=== PATIENT | female | born 1975 | race Caucasian/White ===

== ENCOUNTER → 2017-12-05 08:23 | Outpatient (CLI) | payer OTHER, SELFPAY ==
--- NOTE | 2017-12-05 16:18 | XR_ITS ---
XR foot RT min 3V HISTORY: Right foot pain ITS.REASON: BILATERAL FOOT PAIN ORDERING PHYSICIAN: TITUS Lopez Physician PATIENT AGE: 42 years COMPARISON: None FINDINGS: There is mild hallux valgus with first metatarsophalangeal angle of 20 degrees with minimal hypertrophic change at the distal aspect of the first metatarsal. No other significant anomalies are evident. IMPRESSION: Hallux valgus with bunion formation
--- NOTE | 2017-12-05 16:19 | XR_ITS ---
XR foot LT min 3V HISTORY: Left foot pain ITS.REASON: BILATERAL FOOT PAIN ORDERING PHYSICIAN: TITUS Rosales PATIENT AGE: 42 years COMPARISON: None FINDINGS: Weightbearing views are performed. There is mild hallux valgus with first MTP angle of 17 degrees. There is some cortical thickening with mild deformity of the distal aspect of the first metatarsal suggesting an old fracture. A small cerclage wires present at the medial aspect of the proximal phalanx of the great toe. Otherwise negative. IMPRESSION: 1. Mild hallux valgus. 2. Postsurgical change with old fracture versus prior surgery of the distal first metatarsal
== END ==
PROVIDERS: Visit Provider Podiatrist
DX: M79.672 Pain in left foot (principal); M79.671 Pain in right foot
CPT/HCPCS: 73630

== ENCOUNTER → 2018-09-27 20:03 | Outpatient (CLI) | payer BC, SELFPAY | PROVIDERS: Visit Provider Nurse Practitioner Family | DX: J02.9 Acute pharyngitis, unspecified (principal) ==

== ENCOUNTER → 2019-04-16 13:40 | Outpatient (POV) | payer BC, SELFPAY | PROVIDERS: Visit Provider Dermatology | DX: Z00.00 Encounter for general adult medical examination without abnormal findings (principal) ==

== ENCOUNTER → 2019-12-04 08:29 | Outpatient (CLI) | payer BC, SELFPAY ==
--- NOTE | 2019-12-04 08:35 | MR_ITS ---
PROCEDURE: MR LUMBAR SPINE WO CON CLINICAL INDICATION: LOW BACK PAIN, LUMBAR RADICULOPATHY, FOOT NUMBNESS Low back pain, buttock and leg pain, right lower leg pain and numbness COMPARISON: No exams were available for comparison TECHNIQUE: Standard multiplanar multiecho sequences are performed without contrast. 3-D MIP and myelographic images are also rendered and reviewed FINDINGS: There is normal alignment. The spinal cord ends at the L1 level. L1-L2 L2-L3 and L3-L4 have an unremarkable appearance. There is mild facet ligamentum hypertrophy at L4-5 with minimal bulging of the disc slightly eccentric to the left. There is a small annular fissure along the foraminal and lateral aspect of the disc. There is minimal bilateral foraminal narrowing L5-S1: Unremarkable. No extruded herniated disc or canal stenosis is evident. Incidental note is made at 1.3 cm cyst in the right lobe of the liver posteriorly IMPRESSION: 1. There is mild facet ligamentum hypertrophy at L4-5 with minimal bulging of the disc slightly eccentric to the left. There is a small annular fissure along the foraminal and lateral aspect of the disc. There is minimal bilateral foraminal narrowing 2. No disc herniation or canal stenosis Dictated by: Garrett Crisostomo MD 12/05/2019 10:57 Electronically signed by Garrett Crisostomo MD in [place] 12/05/2019 10:57
== END ==
PROVIDERS: PCP Family Medicine; Visit Provider Family Medicine
DX: M54.5 Low back pain (principal); M54.16 Radiculopathy, lumbar region; R20.0 Anesthesia of skin
CPT/HCPCS: 72148; 76376

== ENCOUNTER → 2019-12-18 08:52 | Outpatient (CLI) | payer BC, SELFPAY ==
--- NOTE | 2019-12-18 09:02 | CT_ITS ---
PROCEDURE: CT ABDOMEN WO/W CON CLINICAL HISTORY: LIVER MASS COMPARISON: No exams were available for comparison TECHNIQUE: Postcontrast images were performed with 75 cc Optiray administration. Axial images obtained with sagittal and coronal reformats. All CT scans at the facility use one or more dose reduction, viz: automated exposure control, ma/kV adjustment per patient size (including targeted exams where dose is matched to indication, i.e. head), or iterative reconstruction technique. FINDINGS: There are at least 7 varying sized hypodense liver lesions. Largest is approximately 11 x 12 millimeter hypodense lesion is seen in the right liver dome. This measures 6 Hounsfield units on the noncontrast exam which would be most consistent with benign cyst. A 2nd lesion 9 x 14 millimeters is seen in the right liver measuring 22 Hounsfield units not fulfilling strict criteria for benign cyst. Other lesions are too small to definitively characterize. 5 minute delayed images fail to demonstrate significant contrast enhancement. Subcentimeter cystic lesion of the posterior cortex of the upper pole of the left kidney is noted. Remaining intra-abdominal organs have a normal appearance. There is no free fluid lymphadenopathy or focal inflammatory process. IMPRESSION: Multiple hypodense predominantly fluid density lesions of the liver favored to be benign cysts but only the largest fulfills strict criteria for benign cyst. Consider 3 to six-month follow-up exam. No acute findings. Dictated by: Ciaran Melo 12/18/2019 11:38 Electronically signed by Ciaran Melo in [facility] 12/18/2019 11:38
== END ==
PROVIDERS: PCP Family Medicine; Visit Provider Family Medicine
DX: R16.0 Hepatomegaly, not elsewhere classified (principal)
CPT/HCPCS: 74170; Q9967

== ENCOUNTER → 2020-04-10 10:21 | Outpatient (CLI) | payer BC, SELFPAY ==
--- NOTE | 2020-04-10 10:25 | CT_ITS ---
PROCEDURE: CT ABDOMEN PELVIS WO/W CON CLINICAL INDICATION: 3 MONTH F/U LIVER MASS Follow-up liver lesion COMPARISON: CT ABDOMEN WO/W CON from 12/18/2019 TECHNIQUE: IV Contrast: 75ML OPTIRAY 350 Oral Contrast 450ml Redicat Axial images obtained with sagittal and coronal reformats. All CT scans at the facility use one or more dose reduction, viz: automated exposure control, ma/kV adjustment per patient size (including targeted exams where dose is matched to indication, i.e. head), or iterative reconstruction technique. FINDINGS: LOWER THORAX: No acute finding the ABDOMEN & PELVIS: Fatty liver. Prior cholecystectomy. Multiple hypoattenuating liver lesions are once again noted as previously described not significantly changed. No new lesions evident. Small hiatal hernia. The spleen, adrenal pancreas and kidneys have unremarkable appearance. There is a less than 1 cm hypodensity of the left kidney is a small cyst IMPRESSION: Stable CT appearance of the abdomen. No change multiple hyperdensity of the liver which may be due to hepatic cysts. Suggest 8 month follow-up to confirm 1 year stability Dictated by: Garrett Crisostomo MD 04/11/2020 10:50 Electronically signed by Garrett Crisostomo MD in [facility] 04/11/2020 10:52
== END ==
PROVIDERS: PCP Family Medicine; Visit Provider Family Medicine
DX: R16.0 Hepatomegaly, not elsewhere classified (principal)
CPT/HCPCS: 74170; 74178; Q9967

== ENCOUNTER → 2020-10-19 15:32 | Outpatient (CLI) | payer BC, SELFPAY | PROVIDERS: PCP Family Medicine; Visit Provider Family Medicine | DX: Z03.818 Encounter for observation for suspected exposure to other biological agents ruled out (principal) | CPT/HCPCS: U0003 ==

== ENCOUNTER → 2021-03-25 10:24 | Outpatient (CLI) | payer BC, SELFPAY ==
[2021-03-25 10:48] LABS: Basophils % 0.7 % (0.1-2.0); Eosinophils # 0.1 K/mm3 (0.0-0.4); Eosinophils % 1.7 % (0.1-12.0); Hemoglobin 13.4 g/dL (12.2-16.2); Lymphocytes # 1.2 K/mm3 (0.7-4.5); Lymphocytes % 27.5 % (10-50); Mean Corpuscular HGB Conc 34.3 g/dL (31.8-35.4); Mean Corpuscular Volume 87.4 fl (81-99); Mean Platelet Volume 8.9 fl (7.4-10.4); Monocytes # 0.2 K/mm3 (0.1-1.0); Monocytes % 4.1 % (1.7-9.3); Neutrophils # 2.9 K/mm3 (1.8-7.8); Neutrophils % 66.1 % (37.0-80.0); Platelet Count 175 K/mm3 (142-424); Red Blood Count 4.46 M/mm3 (4.20-5.40); White Blood Count 4.4 K/mm3 (4.8-10.8)
[2021-03-25 11:15] LABS: Erythrocyte Sedimentation Rate 16 mm/hr (0-20)
[2021-03-25 11:17] LABS: Alanine Aminotransferase 27 U/L (12-78); Albumin Level 4.5 g/dl (3.5-5.0); Albumin/Globulin Ratio 1.8 (1.1-1.8); Alkaline Phosphatase 39 U/L (38-126); Aspartate Amino Transferase 27 U/L (14-36); Bilirubin,Total 0.7 mg/dl (0.2-1.3); Blood Urea Nitrogen 15 mg/dl (7-17); Calcium 9.3 mg/dl (8.4-10.2); Carbon Dioxide 25 mmol/L (22.0-30.0); Chloride 106 mmol/L (98-107); Estimated Glomerular Filt Rate 78 ml/min (>60); GFR (African American) 95 ML/MIN (>60); Globulin 2.5 g/dL (1.3-3.2); Glucose 103 mg/dl (74-100); Sodium 137 mmol/L (136-145)
[2021-03-25 11:23] LABS: C-Reactive Protein 2.5 mg/L (0-4)
[2021-03-28 15:38] LABS: QuantiFERON-TB Gold Plus Negative (Negative)
== END ==
PROVIDERS: Visit Provider Internal Medicine Rheumatology
DX: K50.90 Crohn's disease, unspecified, without complications (principal); K13.79 Other lesions of oral mucosa; M25.551 Pain in right hip; M35.2 Behcet's disease; M79.2 Neuralgia and neuritis, unspecified
CPT/HCPCS: 36415; 80053; 85025; 85651; 86140; 86480

== ENCOUNTER → 2021-05-17 14:39 | Outpatient (CLI) | payer BC, SELFPAY | PROVIDERS: PCP Family Medicine; Visit Provider Family Medicine | DX: G47.30 Sleep apnea, unspecified (principal); G47.10 Hypersomnia, unspecified; R06.83 Snoring | CPT/HCPCS: G0399 ==

== ENCOUNTER → 2021-09-11 09:24 | Outpatient (CLI) | payer BC, SELFPAY ==
[2021-09-11 10:24] LABS: Basophils % 0.9 % (0.1-2.0); Eosinophils # 0.1 K/mm3 (0.0-0.4); Eosinophils % 1.5 % (0.1-12.0); Hematocrit 40.3 % (37.0-47.0); Hemoglobin 13.6 g/dL (12.2-16.2); Lymphocytes # 1.4 K/mm3 (0.7-4.5); Lymphocytes % 33.3 % (10-50); Mean Corpuscular HGB Conc 33.7 g/dL (31.8-35.4); Mean Corpuscular Hemoglobin 30.7 pg (27.0-31.2); Mean Corpuscular Volume 91.1 fl (81-99); Monocytes # 0.2 K/mm3 (0.1-1.0); Monocytes % 3.8 % (1.7-9.3); Neutrophils # 2.6 K/mm3 (1.8-7.8); Neutrophils % 60.6 % (37.0-80.0); Platelet Count 232 K/mm3 (142-424); Red Blood Count 4.42 M/mm3 (4.20-5.40); Red Cell Distribution Width 13.4 % (11.5-17.5); White Blood Count 4.3 K/mm3 (4.8-10.8)
[2021-09-11 11:07] LABS: Chloride 104 mmol/L (98-107)
[2021-09-11 11:08] LABS: Potassium 4.6 mmoL/L (3.5-5.1); Sodium 139 mmol/L (136-145)
[2021-09-11 11:10] LABS: Blood Urea Nitrogen 14 mg/dl (7-17); Estimated Glomerular Filt Rate 109 ml/min (>60); GFR (African American) 132 ML/MIN (>60)
[2021-09-11 11:11] LABS: Alanine Aminotransferase 24 U/L (12-78); Albumin Level 4.6 g/dl (3.5-5.0); Albumin/Globulin Ratio 1.6 (1.1-1.8); Alkaline Phosphatase 46 U/L (38-126); Anion Gap 11.6 mEq/L (5-15); Aspartate Amino Transferase 35 U/L (14-36); Bilirubin,Total 0.6 mg/dl (0.2-1.3); Calcium 9.5 mg/dl (8.4-10.2); Carbon Dioxide 28 mmol/L (22.0-30.0); Chol/HDL Ratio 2.6 (1-3.5); Cholesterol 240 mg/dl (140-200); Globulin 2.8 g/dL (1.3-3.2); Glucose 92 mg/dl (74-100); HDL Cholesterol 92 mg/dl (40-60); Total Protein,Serum 7.4 g/dl (6.3-8.2); Triglycerides 127 mg/dl (30-150); VLDL Cholesterol 25 mg/dL (0-40)
[2021-09-11 11:17] LABS: C-Reactive Protein 2.8 mg/L (0-4)
[2021-09-11 11:22] LABS: Direct LDL Cholesterol 132.98 mg/dL (100-129)
[2021-10-21 18:10] LABS: QuantiFERON-TB Gold Plus NEGATIVE
== END ==
PROVIDERS: Family Medicine; Visit Provider Internal Medicine Rheumatology
DX: K50.90 Crohn's disease, unspecified, without complications (principal); M35.2 Behcet's disease; M25.551 Pain in right hip; M79.2 Neuralgia and neuritis, unspecified; E78.00 Pure hypercholesterolemia, unspecified; R53.83 Other fatigue
CPT/HCPCS: 36415; 80053; 80061; 85025; 86140; 86480

== ENCOUNTER → 2021-09-22 08:40 | Outpatient (CLI) | payer BC, SELFPAY ==
--- NOTE | 2021-09-22 08:58 | CT_ITS ---
PROCEDURE INFORMATION: Exam: CT Abdomen With Contrast Exam date and time: 09/22/2021 8:58 AM Age: 45 years old Clinical indication: Condition or disease; Liver condition; Hepatomegaly or mass; Patient HX: Follow up liver mass. Used 75 ml of isovue 370. 30 sec, 60 sec, 5 min delays TECHNIQUE: Imaging protocol: Computed tomography images of the abdomen with intravenous contrast. Radiation optimization: All CT scans at this facility use at least one of these dose optimization techniques: automated exposure control; mA and/or kV adjustment per patient size (includes targeted exams where dose is matched to clinical indication); or iterative reconstruction. Contrast material: ISOVUE; Contrast volume: 75 ml; Contrast route: IV; COMPARISON: CT ABDOMEN WO/W CON 04/10/2020 11:12 AM FINDINGS: Liver: 12 mm low-attenuation area in the dome of the liver measures 1 Hounsfield units consistent with simple cyst on noncontrast images. Series 3, image 17. 14 mm simple cyst in the posteroinferior right lobe of the liver. Series 3, image 39. Subcentimeter low attenuation area in the inferior right lobe of the liver and the left lobe of the liver are too small for characterization.. Gallbladder and bile ducts: Cholecystectomy Pancreas: Normal. No ductal dilation. Spleen: Normal. No splenomegaly. Adrenals: Normal. No mass. Kidneys and ureters: 9 mm Simple cyst in the left kidney . No follow-up imaging recommended . Stomach and bowel: Visualized stomach and bowel are unremarkable. No obstruction. No mucosal thickening. Intraperitoneal space: Unremarkable. No free air. No significant fluid collection. Lymph nodes: Unremarkable. No enlarged lymph nodes. Vasculature: Unremarkable. No abdominal aortic aneurysm. Bones/joints: Unremarkable. No acute fracture. No dislocation. Soft tissues: Unremarkable. IMPRESSION: 1. 12 mm low-attenuation area in the dome of the liver measures 1 Hounsfield units consistent with simple cyst on noncontrast images. Series 3, image 17. . No follow-up imaging recommended . 2. 14 mm simple cyst in the posteroinferior right lobe of the liver. Series 3, image 39. . No follow-up imaging recommended . 3. Subcentimeter low attenuation area in the inferior right lobe of the liver and the left lobe of the liver are too small for characterization.. COMMENTS: Consistent with the [employer]'s Incidental Findings Committee white paper (J Am Yusuf Radiol 2018): Any incidental renal lesion less than 1 cm or classified as too small to characterize, or any incidental cystic renal lesion characterized as simple-appearing, is likely benign. No follow-up imaging is recommended for these lesions per consensus recommendations based on imaging criteria.
== END ==
PROVIDERS: PCP Family Medicine; Visit Provider Family Medicine
DX: R16.0 Hepatomegaly, not elsewhere classified (principal)
CPT/HCPCS: 74160; Q9967

== ENCOUNTER → 2022-01-24 14:10 | Outpatient (CLI) | payer BC, SELFPAY ==
--- NOTE | 2022-01-24 14:14 | CT_ITS ---
FINAL REPORT CLINICAL HISTORY: LLQ PAIN COMPARISON: September 22 1021 FINDINGS: Axial CT images of the abdomen and pelvis were obtained without intravenous contrast. Coronal reformatted images were also obtained.This study was performed with techniques to keep radiation doses as low as reasonably achievable (ALARA). Individualized dose reduction techniques using automated exposure control or adjustment of mA and/or kV according to the patient's size were employed. Abdomen: The lung bases are clear. There is no evidence of renal stone or hydronephrosis. There are postoperative changes from a cholecystectomy. Again noted are multiple low-attenuation hepatic masses consistent with cysts. These are stable. The spleen and pancreas have an unremarkable, unenhanced appearance. No inflammatory process is identified. There is a small low-attenuation mass in the upper pole of the left kidney measuring 6 mm. This cannot be accurately characterized without contrast. Pelvis: The appendix is not seen consistent with history of appendectomy. There is no evidence of ureteral dilation or ureteral stone. There is scattered diverticula. There are postoperative changes in the rectosigmoid colon. There are postoperative changes from hysterectomy. IMPRESSION: No renal or ureteral stone, or hydronephrosis. No acute intra-abdominal abnormality. Reviewed, Interpreted and Dictated by Alan Pedraza III, MD Transcribed by Awa Benitez Authenticated by Alan Pedraza III, MD on 01/24/2022 02:59:32 PM [facility]
== END ==
PROVIDERS: PCP Family Medicine; Visit Provider Family Medicine
DX: R10.32 Left lower quadrant pain (principal)
CPT/HCPCS: 74176

== ENCOUNTER → 2022-04-04 16:34 | Outpatient (CLI) | payer BC, OTHER, SELFPAY ==
[2022-04-04 17:26] LABS: Basophils # 0.2 K/mm3 (0-0.2); Basophils % 3.6 % (0.1-2.0); Eosinophils # 0.1 K/mm3 (0.0-0.4); Eosinophils % 1.5 % (0.1-12.0); Hematocrit 38.2 % (37.0-47.0); Lymphocytes # 1.6 K/mm3 (0.7-4.5); Lymphocytes % 29.9 % (10-50); Mean Corpuscular HGB Conc 34.1 g/dL (31.8-35.4); Mean Corpuscular Volume 90.9 fl (81-99); Mean Platelet Volume 9.5 fl (7.4-10.4); Monocytes # 0.3 K/mm3 (0.1-1.0); Neutrophils # 3.2 K/mm3 (1.8-7.8); Platelet Count 189 K/mm3 (142-424); Red Blood Count 4.21 M/mm3 (4.20-5.40); Red Cell Distribution Width 13.1 % (11.5-17.5); White Blood Count 5.3 K/mm3 (4.8-10.8)
[2022-04-04 17:41] LABS: Alanine Aminotransferase 25 U/L (12-78); Albumin Level 4.1 g/dl (3.5-5.0); Albumin/Globulin Ratio 1.6 (1.1-1.8); Alkaline Phosphatase 42 U/L (38-126); Anion Gap 11.5 mEq/L (5-15); Aspartate Amino Transferase 28 U/L (14-36); Bilirubin,Total 0.2 mg/dl (0.2-1.3); Blood Urea Nitrogen 19 mg/dl (7-17); Carbon Dioxide 27 mmol/L (22.0-30.0); Chloride 104 mmol/L (98-107); Creatine Kinase 87 U/L (30-135); Estimated Glomerular Filt Rate 91 ml/min (>60); GFR (African American) 110 ML/MIN (>60); Globulin 2.6 g/dL (1.3-3.2); Glucose 107 mg/dl (74-100); Potassium 3.5 mmoL/L (3.5-5.1); Sodium 139 mmol/L (136-145); Total Protein,Serum 6.7 g/dl (6.3-8.2)
[2022-04-04 17:47] LABS: C-Reactive Protein 1.9 mg/L (0-4)
[2022-04-04 17:53] LABS: Intact Parathyroid Hormone 77.6 pg/mL (7.5-53.5)
[2022-04-04 17:59] LABS: Free T4 (Free Thyroxine) 1.11 ng/dl (0.78-2.19)
[2022-04-04 18:05] LABS: Erythrocyte Sedimentation Rate 17 mm/hr (0-20)
[2022-04-04 18:31] LABS: Vitamin B12 481 pg/mL (239-931)
== END ==
PROVIDERS: PCP Family Medicine; Visit Provider Internal Medicine Rheumatology
DX: K50.90 Crohn's disease, unspecified, without complications (principal); M25.551 Pain in right hip; M35.2 Behcet's disease; M79.2 Neuralgia and neuritis, unspecified; R53.83 Other fatigue
CPT/HCPCS: 36415; 80053; 82550; 82607; 82746; 83970; 84439; 84443; 85025; 85651; 86140

== ENCOUNTER 2022-04-28 12:52 | Emergency (ER) | payer BC, OTHER, SELFPAY ==
[2022-04-28 13:00] VITALS: BP 148/79; PULSE 75; RESP 18; TEMP 36.9; O2SAT 98; BMI 31.2
--- NOTE | 2022-04-28 13:38 | HMH.EDUTC ---
[facility] [place] Clinical Impression: Sinusitis Qualifiers: Sinusitis location: unspecified location Chronicity: unspecified Qualified Code(s): J32.9 - Chronic sinusitis, unspecified Disposition: Home, Self-Care Condition on Discharge: Good Instructions: Sinusitis, DI for Sinusitis Additional Instructions: *Monitor Temp, Over the counter Motrin or Tylenol as directed/as needed Tylenol every 4 hours and Motrin every 6 hours (as long as your family doctor has told you that you can take it) for fever or pain. and straight to ER if unable to lower temp less than 101.0 after medication given *Warm salt water gargles may help to soothe the throat *Throat Lozenges *Warm fluids like tea with honey may help to soothe the throat *Sleep elevated *Humidifier/Vaporizer Start oral steriods tomorrow Start oral antibiotics tomorrow Follow up IMMEDIATELY for new or worsening symptoms or no Noticeable improvement over the next 48-72 hours. 911 for difficulty breathing or swallowing Prescriptions: Doxycycline Monohydrate [Doxycycline Rogers 100mg Tab] 100 mg PO BID #14 tab Transmission Status: Received by [facility] #[id number] methylPREDNISolone [Medrol 4mg tab] 4 mg PO DIRECTED #21 tab Transmission Status: Received by [facility] #[id number] Referrals: Radha Gupat [Primary Care Provider] - As needed Time of Disposition: 13:45 Medical Decision Making - Herminio Inquiry Pt receiving controlled substance: No Herminio was queried for this patient: No Vital Signs: 04/28/22 13:00 04/28/22 13:55 Temperature 98.4 F 98.4 F Temperature Source Oral Pulse Rate 75 Pulse Rate [Right Brachial] 75 Respiratory Rate 18 18 Blood Pressure 148/79 H Blood Pressure [Right Arm] 148/79 H Blood Pressure Mean [Right Arm] 102 Blood Pressure Source [Right Arm] Automatic Cuff Blood Pressure Position [Right Arm] Sitting 02 Sat by Pulse Oximetry 98 Oxygen Delivery Method Room Air Orders (Tests/Meds): ED MEDICATIONS Discontinued Medications Generic Name Dose Route Start Last Admin Trade Name Freq PRN Reason Stop Dose Admin Ceftriaxone Sodium 1 gm 04/28/22 13:43 04/28/22 13:52 Ceftriaxone 1gm Vial IM 04/28/22 13:44 1 gm ONCE ONE Administration Lidocaine HCl 0 ml 04/28/22 13:43 04/28/22 13:52 Lidocaine 1% 5ml Pf Vial IM 04/28/22 13:44 2 ml ONCE ONE Administration Methylprednisolone Sodium Succinate 125 mg 04/28/22 13:43 04/28/22 13:52 Methylprednisolone Sod Succ 125mg Vial IM 04/28/22 13:44 125 mg ONCE ONE Administration Medical Decision Narrative: Patient states that she is allergic to Cefaclor she has taken Rocephin in the past without complications or reactions [facility] [place] - General Stated complaint: congestion, sore throat, cough Time Seen by Provider: 04/28/22 13:38 Mode of Arrival: Ambulatory Source of Information: Patient Limitations: No Limitations Description of Symptoms (Recalled from Triage Doc. by RN): PATIENT C/O COUGH, CONGESTION, AND SINUS PRESSURE X 2 DAYS HEENT Symptoms (Recalled from RN notes): Yes Resp Symptoms (Recalled from RN notes): Yes Skin Symptoms (Recalled from RN notes): No MS Symptoms (Recalled from RN notes): No Functional Status (Recalled from RN notes): WNL - History of Present Illness Provider Complaint: Patient states that she has been fighting off what she thought was allergies for several weeks but in the last 2 days she has been having worsening of sinus pain and pressure with pressure behind her eyes and drainage in the back of throat causing her to cough States that she feels like she may have a sinus infection Took at home COVID test and it was negative - Related Data Home Medications Medication Instructions Recorded Confirmed azathioprine 50 mg tablet 50 mg PO ONCE 12/05/17 09/29/21 cetirizine 10 mg capsule 10 mg PO ONCE 12/05/17 09/29/21 cholecalciferol (vitamin D3) 125 5,000 unit PO ONCE 12/05/17 09/29/21 mcg (5,000
[2022-04-28 13:55] VITALS: BP 148/79; PULSE 75; RESP 18; TEMP 36.9; O2SAT 98
== END 2022-04-28 14:05 | disposition home or self-care (01) ==
PROVIDERS: Emergency Provider Nurse Practitioner; PCP Family Medicine
DX: J32.9 Chronic sinusitis, unspecified (principal)
CPT/HCPCS: 96372; 99212; G0463; J0696

== ENCOUNTER → 2022-06-13 16:17 | Outpatient (CLI) | payer BC, SELFPAY ==
--- NOTE | 2022-06-13 | ECG_ITS ---
APPROVED REPORT Exam: Resting ECG HR:64 bpm ECG Measurements Heart Rate 64 AXES DE 148 P 53 QRSd 88 QRS 74 QT 381 T 9 QTc 391 Conclusion SINUS RHYTHM WITH SINUS ARRHYTHMIA NORMAL ECG UNCONFIRMED REPORT Electronically signed by : Rony Travis MD 06/14/2022 13:52:01
== END ==
PROVIDERS: PCP Family Medicine; Visit Provider Internal Medicine Cardiovascular Disease
DX: I49.3 Ventricular premature depolarization (principal)
CPT/HCPCS: 93005

== ENCOUNTER 2022-09-10 08:42 | Emergency (ER) | payer BC, SELFPAY ==
[2022-09-10 09:30] VITALS: BP 112/68; PULSE 81; RESP 21; TEMP 36.9; O2SAT 97; BMI 29.7
--- NOTE | 2022-09-10 09:43 | EXP.UTC ---
Discharge Plan Disposition Patient Disposition: Home, Self-Care Condition: Good Prescriptions Prescriptions: New methylprednisolone [Medrol (Elan)] 4 mg tablets,dose pack See Rx Instructions .Route .COMPLEX 6 Days Qty: 21 0RF Rx Instructions: taper pack; amoxicillin-pot clavulanate 875-125 mg Tablet 1 tab PO Q12H 7 Days Qty: 14 0RF benzonatate 100 mg capsule 100 mg PO TID PRN (Reason: cough) Qty: 30 0RF No Action [id number]-Ao-lwdb-minerals 18-0.4 mg tablet PO cholecalciferol (vitamin D3) 5,000 unit capsule 5,000 unit PO ONCE vitamin B complex tablet 1 tab PO ONCE omega-3 fatty acids-fish oil [One-Per-Day [place]-3] 684-1,200 mg capsule,delayed release(DR/EC) PO meloxicam [Mobic] 15 mg tablet 15 mg PO ONCE azathioprine [Imuran] 50 mg tablet 50 mg PO ONCE estradiol [Estrace] 1 mg tablet 1 mg PO ONCE pantoprazole [Protonix] [address] for susp in packet 40 mg PO QAM lactobacillus combination no.8 [Adult Probiotic] 3 billion cell capsule 3,000 mmu cells PO ONCE cetirizine [Zyrtec] 10 mg capsule 10 mg PO ONCE rizatriptan [Maxalt] 10 mg tablet 10 mg PO ONCE infliximab [Remicade] 100 mg recon soln 100 mg IV urea 45 % cream 1 applic TOPICAL BID Qty: 255 2RF Rx Instructions: Apply up to twice daily to affected dry skin and calluses fluticasone propionate 120 SPR/BOT bottle 1 spr NS DAILY 14 Days Qty: 1 0RF methylprednisolone 4 MG tablet 4 mg PO DIRECTED Qty: 21 0RF Rx Instructions: Take as directed on package instructions doxycycline monohydrate 100 MG tablet 100 mg PO BID Qty: 14 0RF Referrals Follow up/Referrals: Radha Gupta [Primary Care Provider] - See instructions Activity Restrictions/Add. Instructions Additional Instructions/Restrictions: Start oral steriods tomorrow *Monitor Temp, Over the counter Motrin or Tylenol as directed/as needed Tylenol every 4 hours and Motrin every 6 hours (as long as your family doctor has told you that you can take it) for fever or pain. and straight to ER if unable to lower temp less than 101.0 after medication given *Warm salt water gargles may help to soothe the throat *Throat Lozenges? *Warm fluids like tea with honey may help to soothe the throat? *Sleep elevated *Humidifier/Vaporizer Follow up IMMEDIATELY for new or worsening symptoms or no Noticeable improvement over the next 48-72 hours. 911 for difficulty breathing or swallowing Clinical Impressions Clinical Impression: Sinusitis Instructions Patient Instructions: Sinusitis, DI for Sinusitis Discharge ED Provider: Karin Benitez [facility] [place] HPI General Stated complaint: congestion, cough, SHINE Mode of Arrival: Ambulatory Source of Information: Patient Limitations: No Limitations Time Seen by Provider: 09/10/22 09:43 Description of Symptoms (Recalled from Triage Doc. by RN): PATIENT C/O COUGH, HEADACHE, SINUS PRESSURE, EAR PRESSURE, SORE THROAT, AND WHEEZING AT NIGHT THAT STARTED MONDAY HEENT Symptoms (Recalled from RN notes): Yes Resp Symptoms (Recalled from RN notes): Yes Skin Symptoms (Recalled from RN notes): No MS Symptoms (Recalled from RN notes): No Functional Status (Recalled from RN notes): WNL History of Present Illness Provider Complaint: Patient states that she has been having sore throat, sinus pain and pressure cough and having drainage in the back of her throat States that when she lays down she feels like it is trying to move into her chest and she can her it wheeze but if she sits up it goes away Related Data Home Medications Medication Instructions Recorded Confirmed azathioprine 50 mg tablet (Imuran) 50 mg PO ONCE 12/05/17 09/29/21 cetirizine 10 mg capsule (Zyrtec) 10 mg PO ONCE 12/05/17 09/29/21 cholecalciferol (vitamin D3) 125 5,000 unit PO ONCE 12/05/17 09/29/21 mcg (5,000 unit) capsule estradiol 1 mg
[2022-09-10 10:12] LABS: UTC Influenza A Antigen Negative (Negative); UTC Influenza B Antigen Negative (Negative)
[2022-09-10 10:23] VITALS: BP 112/68; PULSE 81; RESP 21; TEMP 36.9; O2SAT 97
== END 2022-09-10 10:24 | disposition home or self-care (01) ==
PROVIDERS: Emergency Provider Nurse Practitioner; PCP Family Medicine
DX: J32.9 Chronic sinusitis, unspecified (principal)
CPT/HCPCS: 87804; 96372; 99212; G0463

== ENCOUNTER 2022-09-17 08:00 | Emergency (ER) | payer BC, SELFPAY ==
[2022-09-17 08:21] VITALS: BP 130/86; PULSE 84; RESP 16; TEMP 36.7; O2SAT 96
--- NOTE | 2022-09-17 08:36 | EXP.UTC ---
Discharge Plan Disposition Patient Disposition: Home, Self-Care Condition: Good Prescriptions Prescriptions: New doxycycline monohydrate [doxycycline monohydrate] 100 mg tablet 100 mg PO Q12 10 Days Qty: 20 0RF benzonatate [benzonatate] 100 mg capsule 100 mg PO TIDP PRN (Reason: Cough) Qty: 30 0RF methylprednisolone 4 mg Tablets,Dose Pack 4 mg PO DIRECTED Qty: 21 0RF No Action yysiolpalefz-Id-wuqi-minerals 18-0.4 mg tablet PO cholecalciferol (vitamin D3) 5,000 unit capsule 5,000 unit PO ONCE vitamin B complex tablet 1 tab PO ONCE omega-3 fatty acids-fish oil [One-Per-Day [place]-3] 684-1,200 mg capsule,delayed release(DR/EC) PO meloxicam [Mobic] 15 mg tablet 15 mg PO ONCE azathioprine [Imuran] 50 mg tablet 50 mg PO ONCE estradiol [Estrace] 1 mg tablet 1 mg PO ONCE pantoprazole [Protonix] [address] for susp in packet 40 mg PO QAM lactobacillus combination no.8 [Adult Probiotic] 3 billion cell capsule 3,000 mmu cells PO ONCE cetirizine [Zyrtec] 10 mg capsule 10 mg PO ONCE rizatriptan [Maxalt] 10 mg tablet 10 mg PO ONCE infliximab [Remicade] 100 mg recon soln 100 mg IV urea 45 % cream 1 applic TOPICAL BID Qty: 255 2RF Rx Instructions: Apply up to twice daily to affected dry skin and calluses fluticasone propionate 120 SPR/BOT bottle 1 spr NS DAILY 14 Days Qty: 1 0RF methylprednisolone 4 MG tablet 4 mg PO DIRECTED Qty: 21 0RF Rx Instructions: Take as directed on package instructions doxycycline monohydrate 100 MG tablet 100 mg PO BID Qty: 14 0RF methylprednisolone [Medrol (Elan)] 4 mg tablets,dose pack See Rx Instructions .Route .COMPLEX 6 Days Qty: 21 0RF Rx Instructions: taper pack; amoxicillin-pot clavulanate 875-125 mg Tablet 1 tab PO Q12H 7 Days Qty: 14 0RF benzonatate 100 mg capsule 100 mg PO TID PRN (Reason: cough) Qty: 30 0RF Referrals Follow up/Referrals: Radha Gupta [Primary Care Provider] - See instructions Activity Restrictions/Add. Instructions Additional Instructions/Restrictions: Drink plenty of fluids. Take tylenol or ibuprofen for pain or fever. Take the medications as directed. Follow up with your regular doctor. GO TO THE ER FOR ANY WORSENING SYMPTOMS Clinical Impressions Clinical Impression: Acute bronchitis Instructions Patient Instructions: DI for Acute Bronchitis [place]charge ED Provider: Montez W[place] [facility] [facility] [place] General Stated complaint: head/chest congestion Mode of Arrival: Ambulatory Source of Information: Patient Limitations: No Limitations Time Seen by Provider: 09/17/22 08:34 Description of Symptoms (Recalled from Triage Doc. by RN): pt comes in with c/o cough, congestion. symptoms began 09/08. HEENT Symptoms (Recalled from RN notes): Yes Resp Symptoms (Recalled from RN notes): Yes Skin Symptoms (Recalled from RN notes): No MS Symptoms (Recalled from RN notes): No Functional Status (Recalled from RN notes): n/a History of Present Illness Provider Complaint: She states that for the past 10 days she has had chest and sinus congestion. She has completed the steroids and antibiotics that were prescribed here originally and she is no better. Related Data Home Medications Medication Instructions Recorded Confirmed azathioprine 50 mg tablet (Imuran) 50 mg PO ONCE 12/05/17 09/29/21 cetirizine 10 mg capsule (Zyrtec) 10 mg PO ONCE 12/05/17 09/29/21 cholecalciferol (vitamin D3) 125 5,000 unit PO ONCE 12/05/17 09/29/21 mcg (5,000 unit) capsule estradiol 1 mg tablet (Estrace) 1 mg PO ONCE 12/05/17 09/29/21 infliximab 100 mg intravenous 100 mg IV 12/05/17 09/29/21 solution (Remicade) lactobacillus combination no.8 3 3,000 mmu cells PO ONCE 12/05/17 09/29/21 billion cell capsule (Adult Probiotic) meloxicam 15 mg tablet (Mobic) 15 mg PO ONCE 12/05/17 09/29/21 [id number]
--- NOTE | 2022-09-17 08:47 | XR_ITS ---
PROCEDURE INFORMATION: Exam: XR Chest Exam date and time: 09/17/2022 8:47 AM Age: 46 years old Clinical indication: Cough; Additional info: Coughx1.5 week TECHNIQUE: Imaging protocol: Radiologic exam of the chest. Views: 2 views. COMPARISON: CT ABDOMEN PELVIS WO CON 01/24/2022 2:19 PM FINDINGS: Lungs: No focal airspace disease. Pleural spaces: Unremarkable. No pleural effusion. No pneumothorax. Heart/Mediastinum: Cardiomediastinal silhouette is within normal limits. Bones/joints: Unremarkable. IMPRESSION: No acute cardiopulmonary abnormality.
[2022-09-17 09:42] VITALS: BP 130/86; PULSE 84; RESP 16; TEMP 36.7
== END 2022-09-17 09:46 | disposition home or self-care (01) ==
PROVIDERS: Emergency Provider Nurse Practitioner Family; PCP Family Medicine
DX: J20.9 Acute bronchitis, unspecified (principal)
CPT/HCPCS: 71046; 96372; 99213; G0463; J0696

== ENCOUNTER 2023-11-24 10:01 | Emergency (ER) | payer BC, SELFPAY ==
[2023-11-24 10:17] VITALS: BP 113/56; PULSE 76; RESP 18; TEMP 36.9; O2SAT 98; BMI 25.7
--- NOTE | 2023-11-24 10:30 | ED_ITS ---
Discharge Plan Disposition Patient Disposition: Home, Self-Care Condition: Good Prescriptions Prescriptions: New amoxicillin [amoxicillin] 875 mg tablet 875 mg PO Q12H Qty: 20 0RF benzonatate [benzonatate] 100 mg capsule 100 mg PO TIDP PRN (Reason: Cough) Qty: 30 0RF methylprednisolone 4 mg Tablets,Dose Pack 4 mg PO DIRECTED 6 Days Qty: 21 0RF Rx Instructions: Take 1 pack as directed for 6 days No Action ugzrssufjwuv-Sr-vsoe-minerals 18-0.4 mg tablet PO cholecalciferol (vitamin D3) 5,000 unit capsule 5,000 unit PO ONCE vitamin B complex tablet 1 tab PO ONCE omega-3 fatty acids-fish oil [One-Per-Day Levasy-3] 684-1,200 mg capsule,delayed release(DR/EC) PO meloxicam [Mobic] 15 mg tablet 15 mg PO ONCE azathioprine [Imuran] 50 mg tablet 50 mg PO ONCE estradiol [Estrace] 1 mg tablet 1 mg PO ONCE pantoprazole [Protonix] [address] for susp in packet 40 mg PO QAM lactobacillus combination no.8 [Adult Probiotic] 3 billion cell capsule 3,000 mmu cells PO ONCE cetirizine [Zyrtec] 10 mg capsule 10 mg PO ONCE rizatriptan [Maxalt] 10 mg tablet 10 mg PO ONCE infliximab [Remicade] 100 mg recon soln 100 mg IV urea 45 % cream 1 applic TOPICAL BID Qty: 255 2RF Rx Instructions: Apply up to twice daily to affected dry skin and calluses fluticasone propionate 120 SPR/BOT bottle 1 spr NS DAILY 14 Days Qty: 1 0RF Referrals Follow up/Referrals: Radha Gupta [Primary Care Provider] - See instructions Activity Restrictions/Add. Instructions Additional Instructions/Restrictions: Drink plenty of fluids. Take tylenol or ibuprofen for pain or fever. Take the medications as directed. Follow up with your regular doctor. GO TO THE ER FOR ANY WORSENING SYMPTOMS Clinical Impressions Clinical Impression: Sinusitis Instructions Patient Instructions: Sinusitis, DI for Sinusitis Discharge ED Provider: Montez Wills [facility] [place] HPI General Stated complaint: sinus pressure, congestion Time Seen by Provider: 11/24/23 10:30 History of Present Illness Provider Complaint: She states that she has had sinus congestion, ear pain, and chest congestion for the past 2 days. Related Data Home Medications Medication Instructions Recorded Confirmed azathioprine 50 mg tablet (Imuran) 50 mg PO ONCE 12/05/17 09/29/21 cetirizine 10 mg capsule (Zyrtec) 10 mg PO ONCE 12/05/17 09/29/21 cholecalciferol (vitamin D3) 125 5,000 unit PO ONCE 12/05/17 09/29/21 mcg (5,000 unit) capsule estradiol 1 mg tablet (Estrace) 1 mg PO ONCE 12/05/17 09/29/21 infliximab 100 mg intravenous 100 mg IV 12/05/17 09/29/21 solution (Remicade) lactobacillus combination no.8 3 3,000 mmu cells PO ONCE 12/05/17 09/29/21 billion cell capsule (Adult Probiotic) meloxicam 15 mg tablet (Mobic) 15 mg PO ONCE 12/05/17 09/29/21 cbvrnpxvtcoi-Oe-bxym-minerals 18 tab PO 12/05/17 09/29/21 mg-0.4 mg tablet omega-3 fatty acids-fish oil 684 cap PO 12/05/17 09/29/21 mg-1,200 mg capsule,delayed release (One-Per-Day Levasy-3) pantoprazole 40 mg granules 40 mg PO QAM 12/05/17 09/29/21 delayed-release for susp in packet (Protonix) rizatriptan 10 mg tablet (Maxalt) 10 mg PO ONCE 12/05/17 11/15/18 vitamin B complex 1 tab PO ONCE 12/05/17 09/29/21 Previous Rx's Medication Instructions Recorded urea 45 % topical cream 1 applic topical BID dry skin #255 04/03/18 grams fluticasone propionate 50 1 spr NS DAILY 14 days ##1 10/05/19 mcg/actuation nasal spray,suspension amoxicillin 875 mg tablet 875 mg PO Q12H #20 tabs 11/24/23 benzonatate 100 mg capsule 100 mg PO TIDP PRN Cough #30 caps 11/24/23 methylprednisolone 4 mg tablets in 4 mg PO DIRECTED 6 days #21 tabs 11/24/23 a dose pack Allergies Allergy/AdvReac Type Severity Reaction Status Date / Time cefaclor [From [facility]] Allergy Verified 11/24/23 10:43 clindamycin Allergy Verified 11/24/23 10:43 codeine Allergy Verified 11/24/23 10:43 erythromycin base Allergy Verified 11/24/23 10:43 tramadol Allergy Verified 11/24/23 10:43 [facility] Disclaimer: The information contained in this section may have been updated after the patient was seen, as this information can be updated by other users. Medical History Encounter for tubal ligation Hyperlipidemia Migraine Surgical History History of appendectomy History of section History of cholecystectomy History of colon resection History of hysterectomy History of tonsillectomy History of tympanostomy tube placement Social History Smoking Status: Never smoker alcohol intake: never substance use type: denies use current occupational status: employed Travel in the last 8 weeks: None household members: children housing: house ROS Obtained: Yes All systems reviewed & no additional complaints except as documented Constitutional Constitutional: Reports poor appetite Eyes Eyes: Reports system reviewed and no additional complaints, except as documented ENT Ears, Nose, Mouth, and Throat: Reports as per HPI Cardiovascular Cardiovascular: Reports system reviewed and no additional complaints, except as documented and Denies chest pain Respiratory Respiratory: Denies shortness of breath, Reports chest congestion, Reports cough, Denies stridor and Denies wheezing Gastrointestinal Gastrointestingal: Reports system reviewed and no additional complaints, except as documented; Denies abdominal pain, diarrhea or vomiting Musculoskeletal Musculoskeletal: Reports system reviewed and no additional complaints, except as documented and Denies arthralgias Integumentary/Breasts Skin/Breast: Reports system reviewed and no additional complaints, except as documented and Denies rash Neurologic Neurologic: Denies paresthesias Allergic/Immunologic Allergic/Immunologic: Denies wheezing Physical Exam General General appearance: alert and in no apparent distress Eye Eye exam: Present normal appearance, PERRL and EOMI ENT ENT exam: Present mucous membranes moist and normal external ear exam Expanded ENT Exam External ear exam: Present normal external inspection TM/Canal exam: Bilateral TM: erythema and bulging Nose exam: Absent sinus tenderness Nasal speculum exam: Bilateral: normal Mouth exam: Present normal external inspection; Absent drooling Teeth exam: Present normal inspection Throat exam: Present tonsillar erythema and tonsillomegaly Neck Neck exam: Present normal inspection, full ROM and trachea midline; Absent tenderness, lymphadenopathy or thyromegaly Chest Chest inspection: Present normal inspection and symmetric chest wall rise; Absent tenderness or rash Respiratory Respiratory exam: Present normal lung sounds bilaterally; Absent respiratory distress, wheezes, stridor or accessory muscle use Cardiovascular Cardiovascular exam: Present regular rate, normal rhythm and normal heart sounds Abdominal Exam Abdominal exam: Present soft; Absent distention, tenderness, guarding, rebound or rigidity Extremities Exam Extremities exam: Present normal inspection, full ROM and normal capillary refill; Absent tenderness or calf tenderness Back Exam Back exam: Present normal inspection and full ROM; Absent tenderness Neurological Exam Neurological exam: Present alert and oriented X3 Psychiatric Psychiatric exam: Present normal affect and normal mood Skin Skin exam: Present warm, dry, intact and normal color Lymphatic Lymphatic Findings: no adenopathy Medical Decision Making Medical Records Medical records reviewed: No I reviewed the patient's medical records. Herminio Inquiry Pt receiving controlled substance: No
[2023-11-24 10:58] VITALS: BP 113/56; PULSE 76; RESP 18; TEMP 36.9; O2SAT 98
== END 2023-11-24 10:58 | disposition home or self-care (01) ==
PROVIDERS: Emergency Provider Nurse Practitioner Family; PCP Family Medicine
DX: J01.90 Acute sinusitis, unspecified (principal); R05.9 Cough, unspecified; R09.81 Nasal congestion; H92.03 Otalgia, bilateral; R09.89 Other specified symptoms and signs involving the circulatory and respiratory systems
CPT/HCPCS: 99212; 99214; G0463

== ENCOUNTER 2023-12-12 16:20 | Outpatient (POV) | payer BC, SELFPAY | END 2023-12-12 23:59 | disposition home or self-care (01) | LOC: SC 16:20 | PROVIDERS: PCP Family Medicine; Visit Provider Dermatology | DX: Z00.00 Encounter for general adult medical examination without abnormal findings (principal) ==

== ENCOUNTER 2025-07-28 16:00 | Outpatient (RCR) | payer BC, SELFPAY | END 2025-07-28 23:59 | disposition home or self-care (01) | LOC: PT 16:00 | PROVIDERS: PCP Family Medicine; Visit Provider Neurological Surgery | DX: M54.12 Radiculopathy, cervical region (principal) | CPT/HCPCS: 97110; 97112; 97140; 97162; 97530 ==

== ENCOUNTER 2025-08-28 16:00 | Outpatient (RCR) | payer BC, SELFPAY | END 2025-08-28 23:59 | disposition home or self-care (01) | LOC: PT 16:00 | PROVIDERS: PCP Family Medicine; Visit Provider Neurological Surgery | DX: M54.12 Radiculopathy, cervical region (principal) | CPT/HCPCS: 97014; 97110; 97112; 97140; 97530; G0283 ==

== ENCOUNTER 2025-09-22 16:00 | Outpatient (RCR) | payer BC, SELFPAY | END 2025-09-22 23:59 | disposition home or self-care (01) | LOC: PT 16:00 | PROVIDERS: PCP Family Medicine; Visit Provider Neurological Surgery | DX: M54.12 Radiculopathy, cervical region (principal); Z98.1 Arthrodesis status; M25.512 Pain in left shoulder | CPT/HCPCS: 97035; 97110; 97140; 97530 ==

== ENCOUNTER 2025-10-13 16:00 | Outpatient (RCR) | payer BC, SELFPAY | END 2025-10-13 23:59 | disposition home or self-care (01) | LOC: PT 16:00 | PROVIDERS: PCP Family Medicine; Visit Provider Neurological Surgery | DX: M54.12 Radiculopathy, cervical region (principal) | CPT/HCPCS: 97035; 97110; 97140 ==